=== PATIENT | female | born 1960 | race Caucasian/White ===

== ENCOUNTER 2019-04-03 19:24 | Inpatient (IN) | payer OTHER ==
[~2019-04-03] VITALS: Ht 157.5 cm; Wt 80.3 kg
[2019-04-03 20:30] LABS: BASOPHIL % 0.4 % (0-2); PLATELET COUNT 283 x10^3mcL (130-400)
[2019-04-03 20:31] LABS: RED CELL DISTRIBUTION WIDTH 14.8 % (11.5-14.5)
[2019-04-03 20:38] LABS: CALCIUM 9.1 mg/dL (8.5-10.1); CARBON DIOXIDE 25.7 mmol/L (21-32); CREATININE SERUM 1.4 mg/dL (0.6-1.0); POTASSIUM SERUM 3.8 mmol/L (3.5-5.1)
[2019-04-03 20:43] LABS: ALBUMIN 3.7 g/dL (3.4-5.0); BILIRUBIN TOTAL 0.2 mg/dL (0.20-1.00)
[2019-04-03 20:45] LABS: TOTAL PROTEIN, SERUM 8.3 g/dL (6.4-8.2)
[2019-04-03] MEDS ORDERED: INVOKANA300 MG PO (22:11)
[2019-04-03] MEDS ORDERED: FORTAMET500 M1 PO (22:11)
[2019-04-03] MEDS ORDERED: SERTRALINE H20 MG/ML PO (22:12)
[2019-04-03] MEDS ORDERED: DETROL LA4 MG PO (22:12)
[2019-04-03] MEDS ORDERED: HYDROCHLOROTH12.5 M3 PO (22:12)
[2019-04-03] MEDS ORDERED: LANTI SQ (22:12)
[2019-04-03] MEDS ORDERED: GRALISE600 MG PO (22:13)
[2019-04-03 22:39] LABS: microscopic required? YES; urine erythrocyte TRACE (NEGATIVE)
[2019-04-03 22:57] VITALS: BP 114/56
[2019-04-04] VITALS (7 sets, daily range): BP systolic 76–134; BP diastolic 44–78
[2019-04-04 06:12] LABS: PLATELET COUNT 215 x10^3mcL (130-400)
[2019-04-04 06:43] LABS: BILIRUBIN TOTAL 0.28 mg/dL (0.20-1.00); CALCIUM 8.2 mg/dL (8.5-10.1); CARBON DIOXIDE 24.3 mmol/L (21-32); CREATININE SERUM 1.9 mg/dL (0.6-1.0); MAGNESIUM 1.7 mg/dL (1.8-2.4); POTASSIUM SERUM 3.6 mmol/L (3.5-5.1); TOTAL PROTEIN, SERUM 6.7 g/dL (6.4-8.2)
[2019-04-04 06:59] LABS: ALBUMIN 2.7 g/dL (3.4-5.0)
[2019-04-04 08:34] LABS: RED CELL DISTRIBUTION WIDTH 14.9 % (11.5-14.5)
[2019-04-04 10:58] LABS: BAND NEUTROPHIL 5 % (0-10); SEGMENTED NEUTROPHILS 90 % (37-75)
[2019-04-04 10:59] LABS: MONOCYTE 2 % (0-7); rbc morphology (normal/abnorm) NORMAL (NORMAL)
[2019-04-05] VITALS: BP 111/48
[2019-04-05 04:00] VITALS: BP 160/52
[2019-04-05 05:42] LABS: BASOPHIL % 0.1 % (0-2); PLATELET COUNT 176 x10^3mcL (130-400)
[2019-04-05 05:43] LABS: RED CELL DISTRIBUTION WIDTH 15.1 % (11.5-14.5)
[2019-04-05 05:45] LABS: CALCIUM 8.4 mg/dL (8.5-10.1); CARBON DIOXIDE 22.3 mmol/L (21-32); CREATININE SERUM 1.5 mg/dL (0.6-1.0); POTASSIUM SERUM 3.7 mmol/L (3.5-5.1)
[2019-04-05 07:39] VITALS: Ht 157.5 cm; Wt 80.3 kg
[2019-04-05 07:45] VITALS: BP 121/64
[2019-04-05 11:26] VITALS: BP 132/74
== END 2019-04-05 12:37 | disposition short-term general hospital (02) | DRG 872 ==
LOC: ED 19:24 → MU 22:05 → DU 22:05 → IC 22:05 → MU 22:43 → DU 04-04 12:17 → IC 04-04 13:21
PROVIDERS: Emergency Medicine; Internal Medicine Pulmonary Disease; ADMIT Hospitalist
DX: A41.51 Sepsis due to Escherichia coli [E. coli] (principal); N17.9 Acute kidney failure, unspecified; N12 Tubulo-interstitial nephritis, not specified as acute or chronic; A41.9 Sepsis, unspecified organism; E11.21 Type 2 diabetes mellitus with diabetic nephropathy; E11.65 Type 2 diabetes mellitus with hyperglycemia; E11.22 Type 2 diabetes mellitus with diabetic chronic kidney disease; N18.3 Chronic kidney disease, stage 3 (moderate); R65.20 Severe sepsis without septic shock; I12.9 Hypertensive chronic kidney disease with stage 1 through stage 4 chronic kidney disease, or unspecified chronic kidney disease; K21.9 Gastro-esophageal reflux disease without esophagitis; E66.9 Obesity, unspecified; B96.20 Unspecified Escherichia coli [E. coli] as the cause of diseases classified elsewhere; E11.40 Type 2 diabetes mellitus with diabetic neuropathy, unspecified; Z79.4 Long term (current) use of insulin; Z90.49 Acquired absence of other specified parts of digestive tract; Z79.899 Other long term (current) drug therapy; Z68.32 Body mass index [BMI] 32.0-32.9, adult
CPT/HCPCS: 82962; G0378; J0696; J1644; J1885; J1956; J2185; J2270; J2405; J2543; J7030; J7120